=== PATIENT | female | born 2000 | race Caucasian/White ===

== ENCOUNTER 2022-03-05 13:59 | Emergency (ER) | payer SELFPAY ==
[~2022-03-05] VITALS: Ht 160 cm; Wt 68.6 kg
[2022-03-05 15:17] LABS: Urine Bacteria FEW /hpf (None Seen); Urine Blood Negative /uL (Negative); Urine Mucus FEW (None Seen); Urine Specific Gravity 1.024 (1.001-1.035); Urine WBC <1 /hpf (0 - 5)
[2022-03-05 15:53] VITALS: BP 151/104
[2022-03-05] MEDS ORDERED: ACETAMINOPHEN 500 MG TAB PO ONE (17:00)
[2022-03-05] MEDS ORDERED: SUMA50TA2 PO (17:01)
== END 2022-03-05 17:17 | disposition home or self-care (01) ==
LOC: ER 13:59
DX: G43.909 Migraine, unspecified, not intractable, without status migrainosus (principal)
CPT/HCPCS: 70450; 81001; 81025